=== PATIENT | female | born 1995 | race Caucasian/White ===

== ENCOUNTER 2019-03-28 20:40 | Emergency (ER) | payer OTHER ==
[~2019-03-28] VITALS: Ht 157.5 cm; Wt 63.5 kg
[2019-03-28 21:15] LABS: BILIRUBIN,URINE NEGATIVE (NEG); CLARITY,URINE CLEAR; COLOR,URINE YELLOW; NITRITE,URINE NEGATIVE (NEG); PH,URINE 7.5; PROTEIN,URINE NEGATIVE (NEG-TRACE); UROBILINOGEN,URINE 0.2 mg/dL (0.2 mg/dL)
[2019-03-28 21:23] LABS: BACTERIA,URINE FEW /HPF (0-FEW); RBC,URINE >40 /HPF (0-2); SQUAMOUS EPITHELIAL CELL,UR OCC /LPF; WBC,URINE RARE /HPF (0-4)
[2019-03-28 22:00] LABS: BASO % 0 % (0-3); EOS % 0 % (0-3); HEMATOCRIT 34.9 % (36.0-47.0); HEMOGLOBIN 11.8 g/dL (12.0-15.5); LYMPH # 1.8 x10^3/uL (1.0-4.8); LYMPH % 19 % (24-48); MEAN CORPUSCULAR HEMOGLOBIN 29 pg (25-35); MEAN CORPUSCULAR HGB CONC 34 g/dL (31-37); MEAN CORPUSCULAR VOLUME 85 fL (79-100); MONO # 0.6 x10^3/uL (0.0-1.1); MONO % 7 % (0-9); NEUT # 7.2 x10^3/uL (1.8-7.7); NEUT % 74 % (31-73); PLATELET COUNT 210 x10^3/uL (140-400); RED BLOOD COUNT 4.11 x10^6/uL (3.50-5.40); WHITE BLOOD COUNT 9.8 x10^3/uL (4.0-11.0)
--- NOTE | 2019-03-28 22:07 | RAD ---
PREG 1ST TRIMESTER History: Vaginal bleeding Comparison: None. Findings: Multiple transverse abdominal sonographic images of the pelvis are submitted. Cervix measured about 4.1 cm in length, some internal echogenicity in the cervical canal about 1.3 cm in thickness. Uterus measured 11.1 x 6.5 x 0.5 cm. There is single intrauterine gestational sac. Gestational sac morphology is within normal limits. Amniotic fluid volume can be considered within normal limits. There is visible pole and demonstrable cardiac activity 165 bpm. Placenta and anatomy are not well visualized at this age of the . [place]-rump length measurement of 4.54 cm corresponds with 11 weeks 3 days. Adjusted ultrasound age is 11 weeks 3 days with estimated delivery date of 10/14/2019. LMP age 11 weeks 6 days with estimated delivery date of 10/11/2019. There is a focus of abnormal echogenicity inferior to the gestational sac 1.2 x 4.6 x 1.9 cm evidence of subchorionic hemorrhage. Left maternal ovary measured 2.9 x 1.7 x 2.1 cm. Right ovary measured 4.2 x 2.1 x 2.1 cm. There is normal color flow of the bilateral ovaries. No free fluid is demonstrated in the cul-de-sac. Impression: 1. There is single viable uterine , adjusted ultrasound age 11 weeks 3 days with estimated delivery date of 10/14/2019. There is subchorionic hemorrhage inferior to the gestational sac. There is also abnormal echogenicity in the cervical canal likely blood products. Electronically signed by: Abdoul Guzman MD (03/28/2019 10:04 PM) [facility]
[2019-03-28 22:56] VITALS: BP 112/59
--- NOTE | 2019-03-28 22:57 | PHYS DOC ---
Past Medical History Past Medical History: Anxiety (ELPIDIO COELHO APRN) Past Surgical History: No Surgical History (ELPIDIO COELHO APRN) Alcohol Use: None Drug Use: None (ELPIDIO COELHO APRN) Attending Signature I have participated in the care of this patient and I have reviewed and agree with all pertinent clinical information above including history, exam, and recommendations. (LESLEY PATEL MD) Adult General Chief Complaint Chief Complaint: VAGINAL BLEEDING [facility] Patient is a 23 year old female, accompanied by her significant other and her mother, who presents to the emergency department with complaints of pelvic cramping that started this morning and vaginal bleeding that started approximately 20 minutes prior to arrival. The patient currently rates her pain as 3 out of 10 on the pain scale. She states that her last menstrual cycle was on January 04, 2019 and her estimated due date is October 10, 2019. Patient is ,1 para 0. She reports mild low back pain but denies any shortness of breath, dizziness, wheezing, fever, cough, increased urinary frequency, dysuria, hematuria, or irregular vaginal discharge prior to the onset of bleeding. Patient states she has not bled heavily enough to saturate a pad as of yet. All other ROS is neg unless otherwise noted in [facility]. (ELPIDIO COELHO APRN) Review of Systems Review of Systems See Above (ELPIDIO COELHO APRN) Allergies Allergies Allergies Coded Allergies Type Severity Reaction Last Updated Verified No Known Drug Allergies 03/28/19 No (LESLEY PATEL MD) Physical Exam Physical Exam See Above Constitutional: Well developed, well nourished, no acute distress, non-toxic appearance. [] HENT: Normocephalic, atraumatic, bilateral external ears normal, nose normal. [] Eyes: PERRLA, EOMI, conjunctiva normal, no discharge. [] Neck: Normal range of motion, no stridor. [] Cardiovascular:Heart rate regular rhythm, no murmur [] Lungs & Thorax: Bilateral breath sounds clear to auscultation [] Abdomen: Bowel sounds normal, soft, no tenderness, no masses, no pulsatile masses. [] Skin: Warm, dry, no erythema, no rash. [] Back: No CVA tenderness. [] Extremities: No cyanosis, ROM intact, no edema. [] Neurologic: Alert and oriented X 3, no focal deficits noted. [] Psychologic: Affect anxious, judgement normal, mood normal. [] (ELPIDIO COELHO APRN) Current Patient Data Vital Signs Vital Signs Date Time Temp Pulse Resp B/P (MAP) Pulse Ox O2 Delivery O2 Flow Rate FiO2 03/28/19 23:17 80 16 112/65 (81) 99 Room Air 03/28/19 22:56 98.7 98.7 (LESLEY PATEL MD) Lab Values Laboratory Tests Test 03/28/19 21:00 03/28/19 21:08 03/28/19 21:48 Urine Collection Type Unknown Urine Color Yellow Urine Clarity Clear Urine pH 7.5 Urine Specific [place] <=1.005 Urine Protein Negative mg/dL (NEG-TRACE) Urine Glucose (UA) Negative mg/dL (NEG) Urine Ketones (Stick) Negative mg/dL (NEG) Urine Blood Large (NEG) Urine Nitrite Negative (NEG) Urine Bilirubin Negative (NEG) Urine Urobilinogen Dipstick 0.2 mg/dL (0.2 mg/dL) Urine Leukocyte Esterase Negative (NEG) Urine RBC >40 /HPF (0-2) Urine WBC Rare /HPF (0-4) Urine Squamous Epithelial Cells Occ /LPF Urine Bacteria Few /HPF (0-FEW) POC Urine HCG, Qualitative Hcg positive (Negative) White Blood Count 9.8 x10^3/uL (4.0-11.0) Red Blood Count 4.11 x10^6/uL (3.50-5.40) Hemoglobin 11.8 g/dL (12.0-15.5) L Hematocrit 34.9 % (36.0-47.0) L Mean Corpuscular Volume 85 fL (79-100) Mean Corpuscular Hemoglobin 29 pg (25-35) Mean Corpuscular Hemoglobin Concent 34 g/dL (31-37) Red Cell Distribution Width 14.0 % (11.5-14.5) Platelet Count 210 x10^3/uL (140-400) Neutrophils (%) (Auto) 74 % (31-73) H Lymphocytes (%) (Auto) 19 % (24-48) L Monocytes (%) (Auto) 7 % (0-9) Eosinophils (%) (Auto) 0 % (0-3) Basophils (%) (Auto) 0 % (0-3) Neutrophils # (Auto) 7.2 x10^3/uL (1.8-7.7) Lymphocytes # (Auto) 1.8 x10^3/uL (1.0-4.8) Monocytes # (Auto) 0.6 x10^3/uL (0.0-1.1) Eosinophils # (Auto) 0.0 x10^3/uL (0.0-0.7) Basophils # (Auto) 0.0 x10^3/uL (0.0-0.2) Maternal Serum HCG Beta Subunit 24827 mIU/mL (0-5) H Laboratory Tests 03/28/19 21:48 (LESLEY PATEL MD) EKG EKG [] (ELPIDIO COELHO APRN) Radiology/Procedures Radiology/Procedures PROCEDURE: PREG 1ST TRIMESTER PREG 1ST TRIMESTER History: Vaginal bleeding Comparison: None. Findings: Multiple transverse abdominal sonographic images of the pelvis are submitted. Cervix measured about 4.1 cm in length, some internal echogenicity in the cervical canal about 1.3 cm in thickness. Uterus measured 11.1 x 6.5 x 0.5 cm. There is single intrauterine gestational sac. Gestational sac morphology is within normal limits. Amniotic fluid volume can be considered within normal limits. There is visible pole and demonstrable cardiac activity 165 bpm. Placenta and anatomy are not well visualized at this age of the . [place]-rump length measurement of 4.54 cm corresponds with 11 weeks 3 days. Adjusted ultrasound age is 11 weeks 3 days with estimated delivery date of 10/14/2019. LMP age 11 weeks 6 days with estimated delivery date of 10/11/2019. There is a focus of abnormal echogenicity inferior to the gestational sac 1.2 x 4.6 x 1.9 cm evidence of subchorionic hemorrhage. Left maternal ovary measured 2.9 x 1.7 x 2.1 cm. Right ovary measured 4.2 x 2.1 x 2.1 cm. There is normal color flow of the bilateral ovaries. No free fluid is demonstrated in the cul-de-sac. Impression: 1. There is single viable uterine , adjusted ultrasound age 11 weeks 3 days with estimated delivery date of 10/14/2019. There is subchorionic hemorrhage inferior to the gestational sac. There is also abnormal echogenicity in the cervical canal likely blood products. [] (ELPIDIO COELHO APRN) Course & Med Decision Making Course & Med Decision Making Pertinent Labs and Imaging studies reviewed. (See chart for details) [] (ELPIDIO COELHO APRN) Dragon Disclaimer Dragon Disclaimer This electronic medical record was generated, in whole or in part, using a voice recognition dictation system. (ELPIDIO COELHO APRN) Departure Departure Impression: Primary Impression: Subchorionic hemorrhage in first trimester Additional Impressions: Vaginal bleeding before 22 weeks gestation Need for rhogam due to Rh negative mother Disposition: HOME, SELF-CARE Condition: STABLE Referrals: UNKNOWN PCP NAME (PCP) Patient Instructions: RhoGAM, Vaginal Bleeding During , First Trimester Additional Instructions: Call your OBGyn in the morning to schedule a follow-up appointment this week. Yo ur HCG level today was [phone]. Your Blood type was O- and you were given a Rhogam shot tonight in the ER. Pelvic rest as discussed until follow up with your OBGyn. Return to the ER if symptoms worsen. Problem Qualifiers Primary Impression: Subchorionic hemorrhage in first trimester Fetus number: single or unspecified fetus Qualified Codes: O41.8X10 - Other specified disorders of amniotic fluid and membranes, first trimester, not applicable or unspecified; O46.8X1 - Other antepartum hemorrhage, first trimester ELPIDIO COELHO APRN Mar 28, 2019 22:57 LESLEY PATEL MD Mar 31, 2019 18:19
[2019-03-28 23:17] VITALS: BP 112/65
== END 2019-03-28 23:24 | disposition home or self-care (01) ==
LOC: ER 20:40
DX: O41.8X10 Other specified disorders of amniotic fluid and membranes, first trimester, not applicable or unspecified (principal); O46.8X1 Other antepartum hemorrhage, first trimester; M54.5 Low back pain; Z3A.11 11 weeks gestation of pregnancy
CPT/HCPCS: 36415; 36430; 76801; 81001; 81025; 84702; 85025; 86850; 86900; 86901; 99285; J2791